=== PATIENT | male | born 1960 | race Caucasian/White ===

== ENCOUNTER 2022-02-19 12:50 | Observation (INO) | payer MEDICARE ==
[2022-02-19] MEDS ORDERED: Ondansetron ODT 4 MG TAB PO PRN (15:59)
[2022-02-19] MEDS ORDERED: Nitroglycerin 0.4 MG TAB (25 Tab Bottle) SL PRN (15:59)
[2022-02-19] MEDS ORDERED: Acetaminophen 325 MG TAB PO PRN (15:59)
[2022-02-19] MEDS ORDERED: Ondansetron PF 4 MG/2 ML Vial IVP PRN (15:59)
[2022-02-19] MEDS ORDERED: Acetaminophen 650 MG Suppository PR PRN (15:59)
[2022-02-19] MEDS ORDERED: Aspirin Chewable 81 MG TAB PO SCH (16:30)
[2022-02-19 17:11] LABS: Troponin I 0.084 ng/mL (< 0.028)
[2022-02-19 17:24] VITALS: BMI 32.8
[2022-02-19 20:15] LABS: Troponin I 0.071 ng/mL (< 0.028)
[2022-02-20 05:11] LABS: #Eosinphils 0.1 thou/uL (0.0-0.7); #Lymphocytes 1.9 thou/uL (1.20-3.40); #Monocytes 0.4 thou/uL (0.11-0.59); #Neutrophils 3.6 thou/uL (1.40-6.50); %Basophils 0.7 % (0.0-1.0); %Eosinophils 2.1 % (0.0-10.0); %Lymphocytes 31.6 % (21.0-51.0); %Monocytes 7.2 % (0.0-10.0); %Neutrophils 58.4 % (42.0-75.0); Hemoglobin 13.3 g/dL (14.0-18.0); Mean Corpuscular HGB CONC 33.1 g/dL (32.0-36.0); Mean Corpuscular Volume 87.7 fL (78.0-98.0); Mean Platelet Volume 7.6 fL (7.4-10.4); Platelet Count 181 thou/uL (130-400); RBC Distribution Width 11.7 % (11.5-14.5); Red Blood Cell (RBC) Count 4.59 mill/uL (4.70-6.10); White Blood Cell (WBC) Count 6.1 thou/uL (4.8-10.8)
[2022-02-20 05:33] LABS: Anion Gap 11 mmol/L (10-20); BUN (Urea Nitrogen) 23 mg/dL (8.4-25.7); Calc. Creatinine Clearance 60 mL/min (70-130); Calcium 9.6 mg/dL (7.8-10.44); Cardiac Risk 3.9 (Less than 4.5); Chloride 106 mmol/L (98-107); Cholesterol 118 mg/dl (< 200 Desired); Estimated GFR 40; Glucose 114 mg/dL (80-115); HDL Cholesterol 30 mg/dL (>60 Neg Risk); LDL Cholesterol, Calculated 62 mg/dL; Potassium 4.3 mmol/L (3.5-5.1); Sodium 141 mmol/L (136-145); Triglycerides 128 mg/dL (Less than 150)
[2022-02-20 05:42] LABS: Carbon Dioxide 28 mmol/L (23-31)
[2022-02-20] MEDS ORDERED: Aspirin Chewable 81 MG TAB PO SCH (09:00)
[2022-02-20] MEDS ORDERED: Amlodipine 10 MG TAB PO SCH (09:00)
[2022-02-20] MEDS ORDERED: Clopidogrel Bisulfate 75 MG TAB PO SCH (09:00)
[2022-02-20 16:08] VITALS: BP 123/68; TEMP 98
== END 2022-02-20 16:52 | disposition home or self-care (01) ==
LOC: ERS 12:50 → 2SW 14:53
PROVIDERS: ADMIT Family Medicine; ATTEND Family Medicine
DX: R07.89 Other chest pain (principal); I25.10 Atherosclerotic heart disease of native coronary artery without angina pectoris; I24.8 Other forms of acute ischemic heart disease; I12.9 Hypertensive chronic kidney disease with stage 1 through stage 4 chronic kidney disease, or unspecified chronic kidney disease; E11.22 Type 2 diabetes mellitus with diabetic chronic kidney disease; N18.30 Chronic kidney disease, stage 3 unspecified; E78.5 Hyperlipidemia, unspecified; I25.2 Old myocardial infarction; F12.10 Cannabis abuse, uncomplicated; Z79.02 Long term (current) use of antithrombotics/antiplatelets; Z79.84 Long term (current) use of oral hypoglycemic drugs; Z79.899 Other long term (current) drug therapy; Z95.1 Presence of aortocoronary bypass graft; Z95.5 Presence of coronary angioplasty implant and graft; Z20.822 Contact with and (suspected) exposure to COVID-19
CPT/HCPCS: 80048; 80061; 82553; 84484 ×2; 85025; 93005; 93017; G0378 ×3; U0003; U0005; 36415

== ENCOUNTER 2025-04-06 15:34 | Observation (INO) | payer MEDICARE, MEDICAID ==
[2025-04-06 17:14] VITALS: BMI 32.4
[2025-04-06] MEDS ORDERED: Dextrose 50% Abboject 50 ML SYRINGE SLOW IVP PRN (17:18)
[2025-04-06] MEDS ORDERED: Melatonin 3 MG TAB PO PRN (17:18)
[2025-04-06] MEDS ORDERED: Glucagon 1 MG/ML KIT IM PRN (17:18)
[2025-04-06] MEDS: Enoxaparin 40 MG (0.4 mL) SYRINGE SC SCH (18:54)
[2025-04-06] MEDS: Sertraline 25 MG TAB PO SCH (18:55)
[2025-04-06] MEDS: Aspirin Chewable 81 MG TAB PO SCH (18:58)
[2025-04-06] MEDS: Lisinopril 10 MG TAB PO SCH (19:02)
[2025-04-06] MEDS: Acetaminophen 325 MG TAB PO PRN (20:39)
[2025-04-07 02:57] LABS: #Basophils 0.04 10x3/uL (0.0-0.2); #Eosinophils 0.14 10x3/uL (0.0-0.7); #Monocytes 0.60 10x3/uL (0.11-0.59); #Neutrophils 3.86 10x3/uL (1.40-6.50); %Basophils 0.6 % (0.0-1.0); %Eosinophils 2.0 % (0.0-10.0); %Lymphocytes 33.0 % (21.0-51.0); %Monocytes 8.6 % (0.0-10.0); %Neutrophils 55.5 % (42.0-75.0); Hematocrit 38.8 % (42.0-52.0); Hemoglobin 12.5 g/dL (14.0-18.0); Mean Corpuscular Hemoglobin 27.5 pg (27.0-31.0); Mean Corpuscular Volume 85.5 fL (78.0-98.0); Platelet Count 181 10x3/uL (130-400); Red Blood Cell (RBC) Count 4.54 mill/uL (4.70-6.10); White Blood Cell (WBC) Count 6.96 10x3/uL (4.8-10.8)
[2025-04-07 03:12] LABS: ALT (SGPT) 11 U/L (Less than 45); AST (SGOT) 17 U/L (11-34); Albumin 3.4 g/dL (3.1-4.5); Alkaline Phosphatase 45 U/L (40-110); Anion Gap 10 mmol/L (10-20); BUN (Urea Nitrogen) 15 mg/dL (8.4-25.7); Bilirubin, Total 0.4 mg/dL (0.3-1.2); Calc. Creatinine Clearance 65 mL/min (70-130); Calcium 9.1 mg/dL (7.8-10.44); Carbon Dioxide 27 mmol/L (23-31); Chloride 109 mmol/L (98-107); Globulin 2.4 g/dL (2.4-3.5); Glucose 107 mg/dL (80-115); Potassium 4.3 mmol/L (3.5-5.1); Sodium 142 mmol/L (136-145)
[2025-04-07] MEDS ORDERED: Lisinopril 10 MG TAB PO SCH (09:00)
[2025-04-07] MEDS ORDERED: Enoxaparin 40 MG (0.4 mL) SYRINGE SC SCH (09:00)
[2025-04-07] MEDS ORDERED: Sertraline 25 MG TAB PO SCH (09:00)
[2025-04-07] MEDS ORDERED: Aspirin Chewable 81 MG TAB PO SCH (09:00)
[2025-04-07] MEDS: Aspirin Chewable 81 MG TAB PO SCH (09:35)
[2025-04-07] MEDS: cefTRIAXone\\ROCEPHIN 1 GM in Sodium Chloride 0.9% 100 ML IVPB SCH (09:36)
[2025-04-07] MEDS: Enoxaparin 40 MG (0.4 mL) SYRINGE SC SCH (09:37)
[2025-04-07] MEDS: Lisinopril 10 MG TAB PO SCH (09:37)
[2025-04-07] MEDS: Sertraline 25 MG TAB PO SCH (09:37)
[2025-04-07] MEDS ORDERED: hydrALAZINE 20 MG/ML VIAL SLOW IVP PRN (11:58)
[2025-04-07] MEDS ORDERED: Cyclobenzaprine 10 MG TAB PO PRN (12:09)
[2025-04-08 05:15] LABS: Anion Gap 10 mmol/L (10-20); BUN (Urea Nitrogen) 14 mg/dL (8.4-25.7); Calc. Creatinine Clearance 70 mL/min (70-130); Calcium 9.4 mg/dL (7.8-10.44); Carbon Dioxide 26 mmol/L (23-31); Chloride 107 mmol/L (98-107); Glucose 109 mg/dL (80-115); Potassium 3.8 mmol/L (3.5-5.1); Sodium 139 mmol/L (136-145)
[2025-04-08 08:10] VITALS: TEMP 98.4
[2025-04-08 12:29] VITALS: BP 157/85
== END 2025-04-08 14:03 | disposition home or self-care (01) ==
LOC: 2NO 16:16
PROVIDERS: ADMIT Family Medicine; ATTEND Student in an Organized Health Care Education/Training Program
DX: M54.50 Low back pain, unspecified (principal); R79.89 Other specified abnormal findings of blood chemistry; R00.1 Bradycardia, unspecified; N20.0 Calculus of kidney; N17.9 Acute kidney failure, unspecified; N39.0 Urinary tract infection, site not specified; I25.10 Atherosclerotic heart disease of native coronary artery without angina pectoris; I12.9 Hypertensive chronic kidney disease with stage 1 through stage 4 chronic kidney disease, or unspecified chronic kidney disease; N18.30 Chronic kidney disease, stage 3 unspecified; E11.22 Type 2 diabetes mellitus with diabetic chronic kidney disease; E78.5 Hyperlipidemia, unspecified; K52.9 Noninfective gastroenteritis and colitis, unspecified; F12.90 Cannabis use, unspecified, uncomplicated; F17.210 Nicotine dependence, cigarettes, uncomplicated; Z95.1 Presence of aortocoronary bypass graft; Z95.5 Presence of coronary angioplasty implant and graft; Z79.02 Long term (current) use of antithrombotics/antiplatelets; Z79.84 Long term (current) use of oral hypoglycemic drugs; Z79.899 Other long term (current) drug therapy
CPT/HCPCS: 80048; 80053; 82962 ×3; 84484 ×3; 85025; 87086; J0696 ×2; J1650 ×3; J7120 ×3; 36415; 36416; 96372; 96374; 96376; G0378